=== PATIENT | female | born 1955 | race Caucasian/White ===

== ENCOUNTER → 2022-07-25 12:43 | Outpatient (CLI) | payer MEDICARE, OTHER, SELFPAY ==
--- NOTE | 2022-07-25 12:44 | DI.RAD.S_ITS ---
PROCEDURE: XR DEXA AXIAL SKELETON INDICATIONS: screening COMPARISON: [facility], , DEXA AXIAL SKELETON, 09/06/2016, 15:21. FINDINGS: This blank DEXA report has been sent in error by the PACS system. The correct and complete report will be forthcoming in 1-2 days. Thank you for your patience and understanding. Dictated by: Jorge Luis Mcallister M.D. on 07/25/2022 at 16:25 Approved by: Jorge Luis Mcallister M.D. on 07/25/2022 at 16:25
== END ==
PROVIDERS: Family Provider Nurse Practitioner; PCP Family Medicine; Referring Provider Family Medicine; Visit Provider Family Medicine
DX: M81.0 Age-related osteoporosis without current pathological fracture (principal); Z78.0 Asymptomatic menopausal state
CPT/HCPCS: 77080